=== PATIENT | male | born 1955 | race Caucasian/White ===

== ENCOUNTER → 2021-09-09 | Outpatient (CLI) | payer OTHER, MEDICARE ==
[~2021-09-09] MED LIST: AMLODIPINE BESY10 MG PO; ASA81BEC PO; HYDROCHLOROTHIA25 M1 PO; LIPITOR 40 MG T40 M1 PO; LOSARTAN POTAS100 MG PO; METFORMIN HCL1000 MG PO; METOPROLOL SUCC50 MG PO
== END ==
LOC: LAB 08:33
PROVIDERS: ATTEND Student in an Organized Health Care Education/Training Program
DX: Z01.812 Encounter for preprocedural laboratory examination (principal); Z20.822 Contact with and (suspected) exposure to COVID-19

== ENCOUNTER 2021-09-11 06:07 | Day surgery (SDC) | payer OTHER, MEDICARE ==
[2021-09-11 07:00] VITALS: BP 158/70
== END 2021-09-11 09:00 | disposition home or self-care (01) ==
LOC: OR → TBA 06:07 → OR 06:07 → TBA 06:08 → OR 09:00
PROVIDERS: ATTEND Ophthalmology
DX: H02.105 Unspecified ectropion of left lower eyelid (principal); H02.535 Eyelid retraction left lower eyelid; H02.205 Unspecified lagophthalmos left lower eyelid; H18.9 Unspecified disorder of cornea; H04.202 Unspecified epiphora, left side; Z79.899 Other long term (current) drug therapy
CPT/HCPCS: 50101; 50386; 50398; 51636; 56527; 56531; 62110; 62850; 70005

== ENCOUNTER → 2021-10-23 | Day surgery (SDC) | payer OTHER, MEDICARE ==
--- NOTE | 2021-09-11 08:06 | EKG ---
[address] [address] ELECTROCARDIOGRAM REPORT Name: BARBARA ALMONTEARANZA Maciel Room #: [facility].#: [id number] Admission: Attend Phys: Felix Archer MD Discharge: Date of : 51 Report #: [id number] [facility] Test Date: 2021-09-11 Test Time: 07:08:30 Pat Name: TAYLER ALMONTE Department: Room: Gender: M Quality Audit Representative: [id number] : 1955 Requested By: Felix Archer Order Number: [id number] MD: William Wiggins Measurements Intervals [place] Rate: 47 P: 75 AR: 199 QRS: 56 QRSD: 105 T: 50 QT: 443 QTc: 392 Interpretive Statements Sinus bradycardia Minimal ST elevation, inferior leads No previous ECG available for comparison Electronically Signed On 09-11-2021 8:06:10 [employer] by William Wiggins [email or web address] <ELECTRONICALLY SIGNED> By: William Wiggins MD, [facility] 09/11/21 08 7 0708 William Wiggins MD, FACC /EPI
--- NOTE | 2021-09-17 10:49 | O ---
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 PROCEDURE: Left lower lid ectropion repair with transconjunctival left lower lid and cheek lift and left inferior punctoplasty. SURGEON: Felix Archer M.D. INTERMEDIATE FRAME TENDER: None. ANESTHESIA: MAC. COMPLICATIONS: None. 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 He presents today for a left lower lid and cheek procedure done in order to attempt to improve his ocular surface milieu by correcting his lid retraction, his ectropion and his punctal stenosis. Informed consent was obtained to include but not limited to the potential risk for loss of vision, bleeding, infection, failure to improve the problem, the potential need for further surgery or treatment. DESCRIPTION OF PROCEDURE: The patient was taken to the operating room where 2% Xylocaine with epinephrine mixed with equal parts 0.75% Marcaine with Wydase was administered transconjunctivally and transcutaneously to the left lower lid, the left medial canthus, the left lateral canthus, the left infratemporal fossa and the left cheek. The patient was then prepped and draped in the usual sterile fashion. The left lateral canthus was then clamped with a Wilks clamp. Sharp canthotomy and cantholysis was then performed. Hemostasis was then re-achieved. A tarsal strip was then prepared laterally, removing the lash-bearing portion [address] [address] OPERATIVE REPORT Name: GAGE,TAYLER Janell Room #: PRE [facility] [place] M.R.#: [id number] Admission: Attend Phys: Felix Archer MD Discharge: Date of : 51 Report #: [id number] of the redundant lid margin and the redundant tarsal plate. Hemostasis was then re-achieved. The left inferior punctum was located, which was challenging because of the degree of his stenosis. It was; however, successful, eventually cannulated with a punctum dilator. A 1 snip inferior punctoplasty was then performed. A transconjunctival incision was then made below the inferior border of the tarsal plate as the lower lid and cheek lift was initiated. The dissection was then carried down primarily sharply into the premalar space. Hemostasis was once again re-achieved. The lower lid and cheek tissues were then elevated and resuspended with multiple interrupted mattress 5-0 chromic sutures. The lower lid and cheek lifted well. Attention was then turned to completion of the ectropion repair. The tarsal strip was secured to the internal portion of the lateral orbital tubercle with interrupted 5-0 Prolene sutures. The subcutaneous structures were then closed with interrupted 6-0 plain gut sutures. The wounds were then cleaned and dressed with erythromycin ophthalmic ointment. The patient was subsequently transported to the recovery area having tolerated the procedures well with no anesthetic or operative complications being noted. <ELECTRONICALLY SIGNED> By: Felix Archer MD 09/17/21 1049 0722 0732 Felix Archer MD /nt
[~2021-10-23] VITALS: Ht 185.4 cm; Wt 104.3 kg
[2021-10-23 07:41] VITALS: BP 146/50
--- NOTE | 2021-10-27 06:20 | O ---
[facility] [place] [address] OPERATIVE REPORT Name: TAYLER ALMONTE Room #: REG [facility].#: [id number] Admission: 10/23/21 Attend Phys: Felix Archer MD Discharge: Date of : 51 Report #: [id number] THIS REPORT FOR: cc: Art Jewell MD,Art Archer,Felix Noe MD ~ cc: Art Deleon DATE OF SERVICE: 10/23/2021 PREOPERATIVE DIAGNOSIS: Right lower lid ectropion with lid retraction, lagophthalmos, keratopathy and epiphora. POSTOPERATIVE DIAGNOSIS: Right lower lid ectropion with lid retraction, lagophthalmos, keratopathy and epiphora. PROCEDURE: Right lower lid ectropion repair with transconjunctival right lower lid and cheek lift with a right inferior punctoplasty. SURGEON: Felix Archer MD COSTUME SHOP MANAGER: None. ANESTHESIA: MAC. COMPLICATIONS: None. INDICATIONS FOR SURGERY: This pleasant 66-year-old gentleman has severe right lower lid ectropion with independent lid, right lower lid retraction with lagophthalmos, keratopathy and chronic tearing. He presents today for right lower lid and cheek procedure in order to attempt to improve his ocular surface milieu thus improving his quality of life, visual function and improving his chronically watery, irritated eye. Informed consent was obtained to include but not limited to the potential risk for loss of vision, bleeding, infection, failure to improve the problem, the potential need for further surgery or treatment. DESCRIPTION OF PROCEDURE: The patient was taken to the operating room where 2% Xylocaine with epinephrine mixed with equal parts of 0.75% Marcaine with Wydase was administered transconjunctivally and transcutaneously to the right lower lid, the right lateral canthus, the right medial canthus, the right infratemporal fossa and the right cheek. The patient was then subsequently prepped and draped in the usual sterile fashion. The right lateral canthus was then clamped with a Wilks clamp. A sharp canthotomy and cantholysis was then performed. Hemostasis was then re-achieved with diligent pinpoint monopolar cautery. A tarsal strip was then prepared laterally removing the [address] [address] OPERATIVE REPORT Name: TAYLER ALMONTE Room #: REG [facility] M.R.#: [id number] Admission: 10/23/21 Attend Phys: Felix Archer MD Discharge: Date of : 51 Report #: [id number] hair-bearing portion of the redundant lid margin and the redundant tarsal plate. Hemostasis was once again then re-achieved. Attention was then turned away from the ectropion repair and towards the lower lid and cheek lift. A transconjunctival incision was made below the inferior border of the tarsal plate across the width of the lid. Hemostasis was then re-achieved. The dissection was then carried down into the premalar tissues sharply. Hemostasis was once more re-achieved. The lower lid and cheek tissues were then resuspended with interrupted 5-0 chromic sutures. The lower lid and cheek lifted well. The right inferior punctum was then dilated with a punctum dilator. A 1 snip inferior punctoplasty was then performed. Attention was then turned to completion of the ectropion repair. The tarsal strip was resuspended from the internal portion of the lateral orbital tubercle with interrupted 5-0 Prolene sutures. The subcutaneous structures were then closed with interrupted 6-0 plain gut sutures. The wounds were then cleaned and dressed with erythromycin ophthalmic ointment. The patient was subsequently transported to the recovery area having tolerated the procedures well with no anesthetic or operative complications being noted. <ELECTRONICALLY SIGNED> By: Felix Archer MD 10/27/21 0620 0751 0803 Felix Archer MD /nt
== END | disposition home or self-care (01) ==
LOC: OR
PROVIDERS: ATTEND Ophthalmology
DX: H02.102 Unspecified ectropion of right lower eyelid (principal); H02.005 Unspecified entropion of left lower eyelid; H02.535 Eyelid retraction left lower eyelid; H02.532 Eyelid retraction right lower eyelid; H04.203 Unspecified epiphora, bilateral; H02.205 Unspecified lagophthalmos left lower eyelid; H02.202 Unspecified lagophthalmos right lower eyelid; H18.9 Unspecified disorder of cornea; I10 Essential (primary) hypertension; E78.00 Pure hypercholesterolemia, unspecified; E11.9 Type 2 diabetes mellitus without complications; Z20.822 Contact with and (suspected) exposure to COVID-19; Z98.890 Other specified postprocedural states; Z79.899 Other long term (current) drug therapy
CPT/HCPCS: 50010; 50101; 50386; 50398; 51636; 56527; 56531; 62110; 62850; 70005